=== PATIENT | male | born 1960 | race Caucasian/White ===

== ENCOUNTER 2021-03-22 14:21 | Inpatient (IN) | payer OTHER, SELFPAY ==
[2021-03-22] VITALS (13 sets, daily range): BP systolic 126–164; BP diastolic 69–84; PULSE 66–89; RESP 14–18; TEMP 36.6–37.1; O2SAT 96–100; BMI 33.5
--- NOTE | 2021-03-22 15:30 | ECG_ITS ---
Test Reason : WEAKNESS Blood Pressure : / mmHG Vent. Rate : 078 BPM Atrial Rate : 078 BPM P-R Int : 218 ms QRS Dur : 082 ms QT Int : 372 ms P-R-T Axes : 019 -04 -11 degrees QTc Int : 424 ms Sinus rhythm with 1st degree A-V block Otherwise normal ECG No previous ECGs available Referred By: Liza Marcano Electronically Signed By:Efren Oliva
[2021-03-22 16:12] LABS: MANUAL DIFF FLAG NO
[2021-03-22 16:15] LABS: Basophils Percent Auto 0.5 % (0-2); Eosinophils Absolute Auto 0.2 X10*3/uL (0.0-0.4); Eosinophils Percent Auto 5.2 % (0-4); Lymphocytes Absolute Auto 1.2 X10*3/uL (1.2-4.9); Lymphocytes Percent Auto 31.3 % (20-40); Mean Platelet Volume 10.4 fL (9.4-12.4); Monocytes Absolute Auto 0.5 X10*3/uL (0.1-1.2); Monocytes Percent Auto 13.3 % (2-11); Neutrophils Absolute Auto 1.8 x10*3/uL (2.0-8.3); Neutrophils Percent Auto 49.7 % (45-73); Platelet Count 241 X10*3/uL (160-400); Red Blood Count 2.94 X10*6/uL (4.60-5.80); Red Cell Distribution Width 18.6 % (11.0-16.0); White Blood Count 3.7 X10*3/uL (4.8-10.8)
[2021-03-22 16:25] LABS: Hemoglobin 5.6 g/dl (14.0-18.0)
[2021-03-22 16:29] LABS: Anion Gap 13 (12-20); Blood Urea Nitrogen 24 mg/dL (9-16); Calcium 8.6 mg/dL (8.4-10.2); Carbon Dioxide 22 mmol/L (22-29); Chloride 105 mmol/L (96-108); Creatinine Clr Calc Pharmacy 67.5; Estimated Glomerular Filt Rate 52; Glucose Random 136 mg/dL (60-115); Potassium 4.5 mmol/L (3.3-5.1); Sodium 135 mmol/L (135-145)
[2021-03-22 16:39] LABS: COVID-19 Test Negative (Negative); IDNOW Serial# 08D9AD1C
[2021-03-22 16:39] LABS: OBS Int Ctl Valid YES; OBS1 NEGATIVE (NEGATIVE)
--- NOTE | 2021-03-22 16:53 | ED.GENADULT ---
HPI - General Adult General Chief complaint: Recheck/Abnormal Lab/Rx Stated complaint: ABNORMAL LABS Time Seen by Provider: 03/22/21 15:30 History of Present Illness HPI narrative: Patient is a 60-year-old male with a history of reflux history of hypertension. Presents today with generalized malaise weakness no bloody stool no fever no chills no cough no congestion or respiratory symptoms no diaphoresis. Patient from home. No chest pain no focal weakness no new medication no travel history no history of anemia. Positive generalized malaise weakness not immunized for COVID Related Data Allergies Allergy/AdvReac Type Severity Reaction Status Date / Time No Known Allergies Allergy Verified 03/22/21 15:30 Review of Systems Review of Systems: Positive generalized malaise Yes all other systems are reviewed and are negative [facility] Past Medical History Attestation statement: The following information was validated with the patient. Social History Social History Advance Directives: No Advance Directives Information Provided: No Physical Exam Vital Signs: Vital Signs: Last Vital Signs Temp 98.0 F 03/22/21 15:13 Pulse 72 03/22/21 15:13 Resp 14 03/22/21 15:13 BP 130/70 03/22/21 15:13 Pulse Ox 96 03/22/21 15:13 BMI result Body Mass Index 33.5 Appearance: Alert. Oriented X3. No acute distress. Eyes: Pupils equal, round and reactive to light. ENT: Pharynx normal. Neck: Normal inspection. Neck supple. No lymph nodes noted. No crepitus CVS: Normal heart rate and rhythm. Pulses normal. Normal S1 and S2 Respiratory: No respiratory distress. Breath sounds normal. No Wheezing. No rales Abdomen: Soft and nontender. No rigidity. No distention. good BS x4 Skin: Skin warm and dry. Normal skin color. Normal skin turgor. Rectal exam done with tech present was heme negative brown stool. Extremities: No lower extremity edema. Neurovascular intact to all extremities. No Lacerations. No Rash Neuro: Oriented X 3. No motor deficit. No sensory deficit. Moving all extermities. No slurred speech Medical Decision Making MDM Narrative Medical decision making narrative: Patient's hemoglobin is 5.7. This is new. With a low MCV consistent with having iron deficiency anemia. Rectal exam showed brown stool that was heme negative. Risk and benefit of transfusion discussed with patient. Nursing was present at the time. Patient consented to the blood. Case discussed with the hospitalist team. Will tense fused patient with 1 unit of blood. Patient is to be admitted. Lab Data Result diagrams: 03/22/21 16:04 03/22/21 16:04 Labs: Lab Results 03/22/21 03/22/21 03/22/21 Range/Units 16:04 16:04 16:04 WBC 3.7 L (4.8-10.8) X10*3/uL RBC 2.94 L (4.60-5.80) X10*6/uL Hgb 5.6 L* (14.0-18.0) g/dl Hct 20.0 L* (42.0-52.0) % MCV 68.0 L (80.0-98.0) fL MCH 19.0 L (27.0-33.0) pg MCHC 28.0 L (31.0-36.0) g/dl RDW 18.6 H (11.0-16.0) % Plt Count 241 (160-400) X10*3/uL MPV 10.4 (9.4-12.4) fL Immature Gran % (Auto) 0.0 (0.0-0.4) % Neut % (Auto) 49.7 (45-73) % Lymph % (Auto) 31.3 (20-40) % [place] % (Auto) 13.3 H (2-11) % Eos % (Auto) 5.2 H (0-4) % Baso % (Auto) 0.5 (0-2) % Lymph # (Auto) 1.2 (1.2-4.9) X10*3/uL [place] # (Auto) 0.5 (0.1-1.2) X10*3/uL Eos # (Auto) 0.2 (0.0-0.4) X10*3/uL Baso # (Auto) 0.0 (0.0-0.2) X10*3/uL Abs Immat Gran (auto) 0.00 (0.00-0.03) X10*3/uL Absolute Neuts (auto) 1.8 L (2.0-8.3) x10*3/uL Absolute Nucleated RBC 0.000 (0.0-0.012) X10*3/uL Nucleated RBC % (auto) 0.0 (0.0-0.2) /100WBC Sodium 135 (135-145) mmol/L Potassium 4.5 (3.3-5.1) mmol/L Chloride 105 (96-108) mmol/L Carbon Dioxide 22 (22-29) mmol/L Anion Gap 13 (12-20) BUN 24 H (9-16) mg/dL Creatinine 1.40 (0.5-1.4) mg/dL Estim Creat Clear Calc 67.5 Estimated GFR 52 Random Glucose 136 H (60-115) mg/dL Calcium 8.6 (8.4-10.2) mg/dL Stool Occult Blood (NEGATIVE) COVID-19 (RAMA) Negative (Negative) COVID-19 Clin Com See Note Blood Type Antibody Screen Crossmatch 03/22/21 03/22/21 Range/Units 16:22 16:27 WBC (4.8-10.8) X10*3/uL RBC (4.60-5.80) X10*6/uL Hgb (14.0-18.0) g/dl Hct (42.0-52.0) % MCV (80.0-98.0) fL MCH (27.0-33.0) pg MCHC (31.0-36.0) g/dl RDW (11.0-16.0) % Plt Count (160-400) X10*3/uL MPV (9.4-12.4) fL Immature Gran % (Auto) (0.0-0.4) % Neut % (Auto) (45-73) % Lymph % (Auto) (20-40) % [place] % (Auto) (2-11) % Eos % (Auto) (0-4) % Baso % (Auto) (0-2) % Lymph # (Auto) (1.2-4.9) X10*3/uL [place] # (Auto) (0.1-1.2) X10*3/uL Eos # (Auto) (0.0-0.4) X10*3/uL Baso # (Auto) (0.0-0.2) X10*3/uL Abs Immat Gran (auto) (0.00-0.03) X10*3/uL Absolute Neuts (auto) (2.0-8.3) x10*3/uL Absolute Nucleated RBC (0.0-0.012) X10*3/uL Nucleated RBC % (auto) (0.0-0.2) /100WBC Sodium (135-145) mmol/L Potassium (3.3-5.1) mmol/L Chloride (96-108) mmol/L Carbon Dioxide (22-29) mmol/L Anion Gap (12-20) BUN (9-16) mg/dL Creatinine (0.5-1.4) mg/dL Estim Creat Clear Calc Estimated GFR Random Glucose (60-115) mg/dL Calcium (8.4-10.2) mg/dL Stool Occult Blood NEGATIVE (NEGATIVE) COVID-19 (RAMA) (Negative) COVID-19 Clin Com Blood Type B Negative Antibody Screen NEGATIVE Crossmatch See Detail Critical Care Time Critical Care Time Critical Care Time: Yes Total Critical Care Time: 40 Attestation: I have personally provided 40 minutes of critical care time exclusive of time spent on separately billable procedures. Time includes review of lab data, radiology results, discussion with consultants, and monitoring for potential decompensation. Interventions were performed as documented above Discharge Plan Discharge Clinical Impression: Anemia Patient Disposition: Admitted As Inpatient
--- NOTE | 2021-03-22 18:01 | PHA.MEDREC ---
Pharmacy Consult ? Medication Reconciliation Pharmacy has completed the medication reconciliation.
--- NOTE | 2021-03-22 19:43 | PM.IMHP ---
History of Present Illness Date of Service: 03/22/21 Chief Complaint: low hemoglobin Taiwanese-speaking, exam obtained with the help of mold filling operator this is a 60-year-old male with past medical history of asthma as well as hypertension presents to the hospital with complaints of abnormal labs, low hemoglobin. Patient reports that for the past 6 months he has had low hemoglobin level. He was worked up by his primary care physician, including having a colonoscopy and EGD which according to his , were significant for polyps, hernia and esophageal inflammation but showed no bleed or ulcers. He was to have further testing done but has been feeling very tired, feeling very dizzy, fatigued, short of breath progressively worsening. He went to his PCP, did a repeat labs which showed hemoglobin of 6 and therefore was sent to the hospital for further evaluation and management. Patient denies any melena, no hematochezia, no hemoptysis, no hematemesis, no family history of blood disease, no chest pain, no abdominal pain nausea or vomiting, no diarrhea constipation. He denies any urinary symptoms and no lower extremity edema On arrival to the ED patient hemodynamically stable with no significant abnormal vitals Labs are significant for WBC count of 3.7, hemoglobin of 5.6, hematocrit of 20%, MCV of 68 ( No previous for comparison ) All other labs within normal. Stool occult negative Patient is receiving 2 units of PRBC in the ED and will be admitted for further management Review of Systems Review of Systems: Yes all other systems are reviewed and are negative [facility] Medical History (Updated 03/23/21 @ 06:16 by Nancy Zheng MD) Asthma BPH (benign prostatic hyperplasia) Hyperlipidemia Hypertension Family History (Updated 03/23/21 @ 06:15 by Nancy Zheng MD) Mother CVA (cerebral vascular accident) Surgical History (Updated 03/23/21 @ 06:15 by Nancy Zheng MD) History of nasal surgery Social History Advance Directives: No Advance Directives Information Provided: No Meds Allergies Allergy/AdvReac Type Severity Reaction Status Date / Time No Known Allergies Allergy Verified 03/22/21 15:30 Active Medications: Current Medications Acetaminophen (Acetaminophen 325 Mg Tablet) 650 mg PO Q6H PRN PRN Reason: Pain, Mild (Pain Scale 1-3) Amlodipine Besylate (Amlodipine Besylate 5 Mg Tablet) 5 mg PO QAM [facility]; Protocol Aspirin (Aspirin Enteric Coated 81 Mg Tablet.) 81 mg PO DAILY [facility] Atorvastatin Calcium (Atorvastatin Calcium 20 Mg Tablet) 20 mg PO DAILY [facility] Docusate Sodium (Docusate Sodium 100 Mg Capsule) 100 mg PO DAILY PRN PRN Reason: Constipation Non-Formulary Medication (Olmesartan) 1 tab PO BEDTIME [facility] Omeprazole (Omeprazole 20 Mg Capsule.) 20 mg PO DAILY [facility] Ondansetron HCl (Ondansetron Hcl 4 Mg/2 Ml Vial) 4 mg IVPUSH Q8H PRN PRN Reason: Nausea and Vomiting Sodium Chloride (0.9 % Sodium Chloride Flush 3 Ml Syringe) 3 ml IVFLUSH QSHIFT [facility] Tamsulosin HCl (Tamsulosin Hcl 0.4 Mg Capsule) 0.4 mg PO QPM [facility] Home Medications Medication Instructions Recorded Confirmed Last Taken Type amlodipine 5 mg tablet 1 tab PO QAM 03/22/21 03/22/21 Unknown History aspirin 81 mg tablet,delayed 1 tab PO DAILY 03/22/21 03/22/21 Unknown History release atorvastatin 20 mg tablet 1 tab PO DAILY 03/22/21 03/22/21 Unknown History olmesartan 40 mg tablet 1 tab PO BEDTIME 03/22/21 03/22/21 Unknown History omeprazole 20 mg capsule,delayed 1 cap PO DAILY 03/22/21 03/22/21 Unknown History release tamsulosin 0.4 mg capsule 1 cap PO QPM 03/22/21 03/22/21 Unknown History Physical Exam Vital Signs and Narrative: Vital Signs: Last Vital Signs Temp 97.9 F 03/22/21 19:41 Pulse 70 03/22/21 19:41 Resp 16 03/22/21 19:41 BP 144/79 H 03/22/21 19:41 Pulse Ox 99 03/22/21 19:39 BMI result Body Mass Index 33.5 Const: General: cooperative and no acute distress Orientation/consciousness: patient oriented x3 Eyes: General: appearance normal, both eyes and all related structures Pupils: Equal, round and reactive pupils present Resp: Effort & Inspection: normal respiratory effort Auscultation: clear to auscultation bilaterally Cardio: Rate: regular rate Rhythm: regular rhythm GI: Palpation (GI): Soft to palpation Auscultation: normal bowel sounds Skin: Other: appears pale General skin exam: no rashes or lesions noted Neuro: General: patient oriented x3 Cranial nerves: Yes Equal, round and reactive pupils present Cognition (Neuro): normal cognition Extrem: General: Yes normal to inspection and Yes no pedal edema Results Labs CBC and Chem 7: 03/22/21 16:04 03/22/21 16:04 Labs: Laboratory Results - last 24 hr 03/22/21 03/22/21 03/22/21 16:04 16:04 16:04 MCV 68.0 L MCH 19.0 L MCHC 28.0 L RDW 18.6 H Plt Count 241 MPV 10.4 Immature Gran % (Auto) 0.0 Neut % (Auto) 49.7 Lymph % (Auto) 31.3 [place] % (Auto) 13.3 H Eos % (Auto) 5.2 H Baso % (Auto) 0.5 Lymph # (Auto) 1.2 [place] # (Auto) 0.5 Eos # (Auto) 0.2 Baso # (Auto) 0.0 Abs Immat Gran (auto) 0.00 Absolute Neuts (auto) 1.8 L Absolute Nucleated RBC 0.000 Nucleated RBC % (auto) 0.0 Anion Gap 13 Estim Creat Clear Calc 67.5 Estimated GFR 52 Random Glucose 136 H Calcium 8.6 Stool Occult Blood COVID-19 (RAMA) Negative COVID-19 Clin Com See Note Blood Type Antibody Screen Crossmatch 03/22/21 03/22/21 16:22 16:27 MCV MCH MCHC RDW Plt Count MPV Immature Gran % (Auto) Neut % (Auto) Lymph % (Auto) [place] % (Auto) Eos % (Auto) Baso % (Auto) Lymph # (Auto) [place] # (Auto) Eos # (Auto) Baso # (Auto) Abs Immat Gran (auto) Absolute Neuts (auto) Absolute Nucleated RBC Nucleated RBC % (auto) Anion Gap Estim Creat Clear Calc Estimated GFR Random Glucose Calcium Stool Occult Blood NEGATIVE COVID-19 (RAMA) COVID-19 Clin Com Blood Type B Negative Antibody Screen NEGATIVE Crossmatch See Detail Assessment and Plan (1) Microcytic anemia: Status: Acute Plan 60-year-old male with past medical history of hypertension, hyperlipidemia, asthma who presents to the hospital with complaints of worsening hemoglobin level as well as fatigue dizziness and shortness of breath # microcytic anemia - appears to be going on for past 6 months - has low MCV and leukopenia - workup in the past has been negative including, scope PE and EGD per his at bedside - receiving 2 units of PRBC - hemoccult negative - will consult Hematology-Oncology - follow CBC # hypertension - stable - continue antihypertensive # BPH - continue tamsulosin # asthma - not in exacerbation DVT prophylaxis: early ambulation and SCDs until source of anemia identified Quality Stroke Does the patient have a stroke diagnosis?: No VTE Prior VTE?: No VTE Risk Level:: Medical - low VTE Device Contraindication: N/A - Device Ordered VTE Drug Contraindication: Treatment Not Indicated
[2021-03-22] MEDS: Tamsulosin HCL 0.4 MG CAPSULE PO (20:04)
--- NOTE | 2021-03-22 20:08 | PC.NURSE ---
PT daughter in-law-Ayala [phone]
--- NOTE | 2021-03-22 22:23 | PC.NURSE ---
pt aware that he is going to be staying in the hospital, family at bedside. 2nd unit of PRBC hanging now, KRYSTA used for interpretation
--- NOTE | 2021-03-22 22:33 | PC.NURSE ---
call placed to pharmacy for Valsartan - heather bring up
[2021-03-22] MEDS: Valsartan 160 MG TABLET PO (22:59)
[2021-03-23] VITALS (10 sets, daily range): BP systolic 131–155; BP diastolic 63–83; PULSE 64–82; RESP 16–18; TEMP 36.6–36.8; O2SAT 96–99
[2021-03-23] MEDS: Omeprazole 20 MG CAPSULE.DR PO (07:52)
[2021-03-23] MEDS: 0.9 % Sodium Chloride Flush 3 ML SYRINGE IVFLUSH ×2 (07:53→23:54)
[2021-03-23 07:57] LABS: MANUAL DIFF FLAG NO
[2021-03-23 07:59] LABS: Basophils Percent Auto 0.5 % (0-2); Eosinophils Absolute Auto 0.2 X10*3/uL (0.0-0.4); Eosinophils Percent Auto 3.8 % (0-4); Hematocrit 24.7 % (42.0-52.0); Hemoglobin 7.5 g/dl (14.0-18.0); Imm Gran Abs Auto 0.02 X10*3/uL (0.00-0.03); Imm Gran Pct Auto 0.3 % (0.0-0.4); Lymphocytes Absolute Auto 1.5 X10*3/uL (1.2-4.9); Lymphocytes Percent Auto 24.8 % (20-40); Mean Corpuscular HGB Conc 30.4 g/dl (31.0-36.0); Mean Corpuscular Hemoglobin 21.8 pg (27.0-33.0); Mean Corpuscular Volume 71.8 fL (80.0-98.0); Mean Platelet Volume 10.3 fL (9.4-12.4); Monocytes Absolute Auto 0.7 X10*3/uL (0.1-1.2); Monocytes Percent Auto 12.2 % (2-11); Neutrophils Absolute Auto 3.4 x10*3/uL (2.0-8.3); Neutrophils Percent Auto 58.4 % (45-73); Platelet Count 222 X10*3/uL (160-400); Red Blood Count 3.44 X10*6/uL (4.60-5.80); White Blood Count 5.8 X10*3/uL (4.8-10.8)
[2021-03-23 08:12] LABS: Anion Gap 8 (12-20); Blood Urea Nitrogen 20 mg/dL (9-16); Calcium 8.7 mg/dL (8.4-10.2); Carbon Dioxide 25 mmol/L (22-29); Chloride 108 mmol/L (96-108); Creatinine Clr Calc Pharmacy 73.9; Estimated Glomerular Filt Rate 57; Glucose Random 109 mg/dL (60-115); Potassium 4.4 mmol/L (3.3-5.1); Sodium 137 mmol/L (135-145)
[2021-03-23 08:31] LABS: Ferritin 18 ng/mL (20-250)
[2021-03-23 08:59] LABS: Immature Retic Fraction 28.2 % (2.3-13.4); Retic HGB Equivalent 17.3 pg (30.0-35.0); Reticulocyte Percent 1.2 % (0.5-1.8); Reticulocytes Absolute 0.042 X10*6/uL (0.026-0.095)
[2021-03-23] MEDS: Aspirin Enteric Coated 81 MG TABLET.DR PO (09:10)
[2021-03-23] MEDS: amLODIPine Besylate 5 MG TABLET PO (09:10)
[2021-03-23] MEDS: Atorvastatin Calcium 20 MG TABLET PO (09:10)
[2021-03-23 09:14] LABS: Alanine Aminotransferase 14 U/L (0-40); Albumin Level 3.9 g/dL (3.5-5.0); Alkaline Phosphatase 39 U/L (39-117); Aspartate Amino Transferase 12 U/L (5-37); Bilirubin Direct 0.6 mg/dL (0.0-0.5); Bilirubin Total 1.8 mg/dL (0.0-1.0); Iron 364 mcg/dL (45-160); Total Protein 6.1 g/dL (6.5-8.0)
[2021-03-23 09:26] LABS: Lactate Dehydrogenase 152 U/L (118-273); Total Iron Binding Capacity < 381 mcg/dL (228-428); Unsaturated Iron Binding < 17 ug/dL
--- NOTE | 2021-03-23 09:33 | HO.PM.IMPN ---
Subjective Subjective Date of Service: 03/23/21 Interval History: late entry note for 03/23 f/u on anemia, dizziness, no dizziness following transfusion Review of Systems Gen: no fever Resp: no sob, no cough CV: no chest, no PADILLA, no leg edema GI: No n/v, no abd pain Neuro: No confusion Physical Exam Vital Signs: Vital Signs: vitals reviewed on 03/23 Const: Other: General: AO X 3, no acute distress Resp: CTA bilateral CVS: S1,S2,RRR GI: +BS, NT, no distention Skin: No rash Neuro: motor grossly intact Psych: appropriate affect Objective Data Active Medications Acetaminophen (Acetaminophen 325 Mg Tablet) 650 mg PO Q6H PRN PRN Reason: Pain, Mild (Pain Scale 1-3) Amlodipine Besylate (Amlodipine Besylate 5 Mg Tablet) 5 mg PO DAILY [facility]; Protocol Last Admin: 03/24/21 08:58 Dose: 5 mg Documented by: GRACIE Aspirin (Aspirin Enteric Coated 81 Mg Tablet.) 81 mg PO DAILY [facility] Last Admin: 03/24/21 08:57 Dose: 81 mg Documented by: GRACIE Atorvastatin Calcium (Atorvastatin Calcium 20 Mg Tablet) 20 mg PO DAILY [facility] Last Admin: 03/24/21 08:57 Dose: 20 mg Documented by: GRACIE Docusate Sodium (Docusate Sodium 100 Mg Capsule) 100 mg PO DAILY PRN PRN Reason: Constipation Omeprazole (Omeprazole 20 Mg Capsule.) 20 mg PO DAILY@0630 [facility] Last Admin: 03/24/21 06:08 Dose: 20 mg Documented by: SAM Ondansetron HCl (Ondansetron Hcl 4 Mg/2 Ml Vial) 4 mg IVPUSH Q8H PRN PRN Reason: Nausea and Vomiting Sodium Chloride (0.9 % Sodium Chloride Flush 3 Ml Syringe) 3 ml IVFLUSH QSHIFT [facility] Last Admin: 03/24/21 08:54 Dose: 3 ml Documented by: GRACIE Tamsulosin HCl (Tamsulosin Hcl 0.4 Mg Capsule) 0.4 mg PO DAILY@1700 [facility] Last Admin: 03/23/21 16:18 Dose: 0.4 mg Documented by: BELLA Valsartan (Valsartan 160 Mg Tablet) 160 mg PO BEDTIME [facility] Last Admin: 03/23/21 21:30 Dose: 160 mg Documented by: SEBLE Labs CBC & Chem 7: 03/24/21 07:34 03/23/21 07:36 Labs: Laboratory Results - last 24 hr 03/22/21 03/23/21 03/24/21 16:22 08:51 07:34 MCV 73.4 L MCH 22.3 L MCHC 30.4 L RDW 23.2 H Plt Count 247 MPV 11.0 Absolute Nucleated RBC 0.000 Nucleated RBC % (auto) 0.0 Vitamin B12 357 Folate 12.2 Blood Type B Negative Antibody Screen NEGATIVE Crossmatch See Detail Assessment and Plan (1) Microcytic anemia: Status: Acute (2) Anemia: Status: Acute Plan 60/m with anemia of unclear nature, he has had EGD and colonosopy somewhere in [place] last month. Here with dizziness and found to be profoundly anemia hgb on 5, negative occult blood. Transfused 2 unst with improvment in acute anemia--no evidence of acute blood loss. Will transfuse 1 more units and hematology to see Quality Stroke Does the patient have a stroke diagnosis?: No VTE Prior VTE?: No VTE Risk Level:: Medical - low VTE Device Contraindication: N/A - Device Ordered VTE Drug Contraindication: Treatment Not Indicated
[2021-03-23 10:51] LABS: Folate 12.2 ng/mL (> or = 4.0); Vitamin B12 357 pg/mL (200-900)
--- NOTE | 2021-03-23 12:26 | MHC.CM.PN ---
CM CONTACTED PTS [id number], ARTEM ([phone]) WHO REPORTS THE PT LIVES WITH HER AND HER AND CHILDREN. SHE REPORTS HE IS INDEPENDENT WITH SELF CARE AND USES NO DME OR HOME SERVICES. PT SEES FRANCIS CUMMINS AT [facility] IN [place] FOR PRIMARY CARE AND HAS NO HCP. HCP INFORMATION PROVIDED AND THEY ARE AWARE CM CAN ASSIST IN COMPLETION IF DESIRED. PT HAS NOT RECEIVED THE COVID-19 VACCINES. CURRENT DC PLAN IS HOME WITH RESUMPTION OF FAMILY SUPPORT FAMILY TO TRANSPORT
--- NOTE | 2021-03-23 14:12 | PC.NURSE ---
PT RESTING ATE LUNCH. APPEARS IN NO OUTWARD DISTRESS. DR LUCERO AT THE BEDSIDE
--- NOTE | 2021-03-23 14:24 | P.DS_ITS ---
DS: Providers Provider Date of Service: 03/24/21 Date of admission: 03/22/21 19:38 Primary care physician: Unknown Physician Consults: 03/22/21 22:50 Consult to Hematology / Oncology Routine Consulting Provider: Pili Ferreira Reason for consultation: anemia Has provider been notified: No DS: Diagnosis Discharge Diagnosis (1) Microcytic anemia: Status: Acute DS: Summary Hospital Course Hospital Course: Chief Complaint:? low hemoglobin ? Ethiopian-speaking, exam obtained with the help of installer helper this is a 60-year-old male with past medical history of asthma as well as hypertension presents to the hospital with complaints of abnormal labs, low hemoglobin.? Patient reports that for the past 6 months he has had low hemoglobin level.? He was worked up by his primary care physician, including having a colonoscopy and EGD which? according to his ,? were significant for polyps, hernia and esophageal inflammation but showed no bleed or ulcers.? He was to have further testing done but has been feeling very tired, feeling very dizzy, fatigued, short of breath progressively worsening.? He went to his PCP, did a repeat labs which showed hemoglobin of 6 and therefore was sent to the [facility] for further evaluation and management.? Patient denies any melena, no hematochezia, no hemoptysis, no hematemesis, no family history of blood disease, no chest pain, no abdominal pain nausea or vomiting, no diarrhea constipation.? He denies any urinary symptoms and no lower extremity edema On arrival to the ED? patient hemodynamically stable with no significant abnormal vitals Labs are significant for WBC count of 3.7, hemoglobin of 5.6, hematocrit of 20%, MCV of 68 ( No previous for comparison? ) All other labs within normal.? Stool occult negative Patient is receiving 2 units of PRBC in the ED and will be admitted for further management Hospital course: Patient was admitted and transfused 2 units of RBCs with improvment in his symptoms. Hemoglobin is now 8.9 after 3 units of RBC. He has been evaluated by Dr. Clinton and will follow with patient on outpatient baisis. Time Spent with Patient Time attestation: Total time spent providing and/or coordinating discharge services: Discharge coordination time: Greater than 30 minutes Quality: Stroke Does the patient have a stroke diagnosis?: No Physical Exam Vital Signs: Vital Signs: Selected Entries 03/24/21 09:09 Temperature 97.4 F Pulse Rate 72 Respiratory Rate 15 Blood Pressure 160/86 H Pulse Oximetry 98 Oxygen Delivery Me thod Room Air Const: Other: General: AO X 3, no acute distress Resp: CTA bilateral CVS: S1,S2,RRR GI: +BS, NT, no distention Skin: No rash Neuro: motor grossly intact Psych: appropriate affect DS: Data Data Completed and Pending Labs on day of discharge: Laboratory Results - last 24 hr 03/22/21 03/22/21 03/22/21 16:04 16:04 16:04 WBC 3.7 L RBC 2.94 L Hgb 5.6 L* Hct 20.0 L* MCV 68.0 L MCH 19.0 L MCHC 28.0 L RDW 18.6 H Plt Count 241 MPV 10.4 Immature Gran % (Auto) 0.0 Neut % (Auto) 49.7 Lymph % (Auto) 31.3 Camp % (Auto) 13.3 H Eos % (Auto) 5.2 H Baso % (Auto) 0.5 Lymph # (Auto) 1.2 Camp # (Auto) 0.5 Eos # (Auto) 0.2 Baso # (Auto) 0.0 Abs Immat Gran (auto) 0.00 Absolute Neuts (auto) 1.8 L Absolute Nucleated RBC 0.000 Nucleated RBC % (auto) 0.0 Smear Path Review SEE NOTE Absolute Retic Percent Retic Immature Retic Fraction Retic Hgb Equivalent Sodium 135 Potassium 4.5 Chloride 105 Carbon Dioxide 22 Anion Gap 13 BUN 24 H Creatinine 1.40 Estim Creat Clear Calc 67.5 Estimated GFR 52 Random Glucose 136 H Calcium 8.6 Iron TIBC % Saturation Unsat Iron Binding Ferritin Total Bilirubin Direct Bilirubin AST ALT Alkaline Phosphatase Lactate Dehydrogenase Total Protein Albumin Vitamin B12 Folate Stool Occult Blood COVID-19 ([facility]) Negative COVID-19 Clin Com See Note Blood Type Antibody Screen Crossmatch 03/22/21 03/22/21 03/23/21 16:22 16:27 07:36 WBC RBC Hgb Hct MCV MCH MCHC RDW Plt Count MPV Immature Gran % (Auto) Neut % (Auto) Lymph % (Auto) Camp % (Auto) Eos % (Auto) Baso % (Auto) Lymph # (Auto) Camp # (Auto) Eos # (Auto) Baso # (Auto) Abs Immat Gran (auto) Absolute Neuts (auto) Absolute Nucleated RBC Nucleated RBC % (auto) Smear Path Review Absolute Retic Percent Retic Immature Retic Fraction Retic Hgb Equivalent Sodium 137 Potassium 4.4 Chloride 108 Carbon Dioxide 25 Anion Gap 8 L BUN 20 H Creatinine 1.28 Estim Creat Clear Calc 73.9 Estimated GFR 57 Random Glucose 109 Calcium 8.7 Iron TIBC % Saturation Unsat Iron Binding Ferritin Total Bilirubin Direct Bilirubin AST ALT Alkaline Phosphatase Lactate Dehydrogenase Total Protein Albumin Vitamin B12 Folate Stool Occult Blood NEGATIVE COVID-19 ([facility]) COVID-19 Clin Com Blood Type B Negative Antibody Screen NEGATIVE Crossmatch See Detail 03/23/21 03/23/21 03/23/21 07:36 07:36 08:51 WBC 5.8 RBC 3.44 L Hgb 7.5 L D Hct 24.7 L D MCV 71.8 L MCH 21.8 L MCHC 30.4 L RDW 23.0 H Plt Count 222 MPV 10.3 Immature Gran % (Auto) 0.3 Neut % (Auto) 58.4 Lymph % (Auto) 24.8 Camp % (Auto) 12.2 H Eos % (Auto) 3.8 Baso % (Auto) 0.5 Lymph # (Auto) 1.5 Camp # (Auto) 0.7 Eos # (Auto) 0.2 Baso # (Auto) 0.0 Abs Immat Gran (auto) 0.02 Absolute Neuts (auto) 3.4 Absolute Nucleated RBC 0.000 Nucleated RBC % (auto) 0.0 Smear Path Review Absolute Retic 0.042 Percent Retic 1.2 Immature Retic Fraction 28.2 H Retic Hgb Equivalent 17.3 L Sodium Potassium Chloride Carbon Dioxide Anion Gap BUN Creatinine Estim Creat Clear Calc Estimated GFR Random Glucose Calcium Iron TIBC % Saturation Unsat Iron Binding Ferritin 18 L Total Bilirubin Direct Bilirubin AST ALT Alkaline Phosphatase Lactate Dehydrogenase Total Protein Albumin Vitamin B12 Folate Stool Occult Blood COVID-19 ([facility]) COVID-19 [employer] Com Blood Type Antibody Screen Crossmatch 03/23/21 03/23/21 08:51 08:51 WBC RBC Hgb Hct MCV MCH MCHC RDW Plt Count MPV Immature Gran % (Auto) Neut % (Auto) Lymph % (Auto) Camp % (Auto) Eos % (Auto) Baso % (Auto) Lymph # (Auto) Camp # (Auto) Eos # (Auto) Baso # (Auto) Abs Immat Gran (auto) Absolute Neuts (auto) Absolute Nucleated RBC Nucleated RBC % (auto) Smear Path Review Absolute Retic Percent Retic Immature Retic Fraction Retic Hgb Equivalent Sodium Potassium Chloride Carbon Dioxide Anion Gap BUN Creatinine Estim Creat Clear Calc Estimated GFR Random Glucose Calcium Iron 364 H TIBC < 381 % Saturation TNP Unsat Iron Binding < 17 Ferritin Total Bilirubin 1.8 H Direct Bilirubin 0.6 H AST 12 ALT 14 Alkaline Phosphatase 39 Lactate Dehydrogenase 152 Total Protein 6.1 L Albumin 3.9 Vitamin B12 357 Folate 12.2 Stool Occult Blood COVID-19 ([facility]) COVID-19 Clin Com Blood Type Antibody Screen Crossmatch Discharge Plan Discharge Anticipated Discharge Date/Time: 03/24/21 09:27 Patient Disposition: Home, Self-Care Discharge Diagnosis: Acute blood loss anemia Referrals: Physician,Unknown J [Primary Care Provider] - 1 Week Discharge Medications: Continued atorvastatin 20 mg tablet 1 tab PO DAILY 0RF amlodipine 5 mg tablet 1 tab PO QAM 0RF aspirin 81 mg tablet,delayed release (DR/EC) 1 tab PO DAILY 0RF tamsulosin 0.4 mg capsule 1 cap PO QPM 0RF omeprazole 20 mg capsule,delayed release(DR/EC) 1 cap PO DAILY 0RF olmesartan 40 mg tablet 1 tab PO BEDTIME 0RF Discharge Orders: Discharge Order (Routine); Ordered 03/24/21 Ordered By: Yash Goldsmith Diet: advance to usual diet Activity on Discharge: As tolerated Stand Alone Forms: Patient Portal Discharge page Care Plan Goals: full work up for anemia Health Concerns: symptomatic anemia Plan of Treatment: To follow up with your GI doctor, Follow up with Dr. Clinton (hematoligst here) Assessment: As above Discharge Date/Time: 03/24/21 11:00
[2021-03-23] MEDS: Tamsulosin HCL 0.4 MG CAPSULE PO (16:18)
--- NOTE | 2021-03-23 16:58 | PM.HEMONCCN ---
Subjective - Subjective Chief complaint: Weakness Patient: new to practice Consult date: 03/23/21 Requesting Physician: Dr. Goldsmith Primary Care Provider: Vera Sal MD HPI - Consult Narrative Reason for consult: Severe anemia Narrative: Victor Manuel Coker is a 60 year old male who was sent by his PCP for severe anemia. Patient is somewhat of a poor historian but states that he has been anemic since summer. He had an EGD and colonoscopy at [facility] and he does not know what the outcome of the test was. He states that he was not on any oral iron or any medications to treat his anemia. He states he never saw a vegetable tester. He does not know although his hemoglobin was previously. He has never received a blood transfusion. He suffered a stroke in 1996 and has been disabled ever since. He denies any complaints such as loss of appetite, weight loss or change in bowel habits. He has gained weight in the last few months as he was eating more when he was diagnosed with anemia. He has not been moving around much or exercising. He denies any recent infections or changes to his medications. He is currently receiving his 2nd unit of blood transfusion. He states that he feels a lot better than yesterday. Review of Systems - Constitutional Reports as per HPI, Reports no additional constitutional complaints - Cardiovascular Reports no additional cardiovascular complaints - Respiratory Reports no additional respiratory complaints - Gastrointestinal Reports no additional gastrointestinal complaints [facility] Medical History: Medical History (Last Updated 03/23/21 @ 06:15 by Nancy Zheng MD) Asthma BPH (benign prostatic hyperplasia) Hyperlipidemia Hypertension Family History: Family History (Last Updated 03/23/21 @ 06:15 by Nancy Zheng MD) Mother CVA (cerebral vascular accident) Surgical History: Surgical History (Last Updated 03/23/21 @ 06:15 by Nancy Zheng MD) History of nasal surgery Social History: Social History (Last Reviewed 03/22/21 @ 17:16 by Liza Marcano MD) Occupation Assessmet: service: No Current occupational status: retired Home Medications and Allergies Current Medications: Current Medications Acetaminophen (Acetaminophen 325 Mg Tablet) 650 mg PO Q6H PRN PRN Reason: Pain, Mild (Pain Scale 1-3) Amlodipine Besylate (Amlodipine Besylate 5 Mg Tablet) 5 mg PO DAILY [facility]; Protocol Last Admin: 03/23/21 09:10 Dose: 5 mg Documented by: Aspirin (Aspirin Enteric Coated 81 Mg Tablet.) 81 mg PO DAILY [facility] Last Admin: 03/23/21 09:10 Dose: 81 mg Documented by: Atorvastatin Calcium (Atorvastatin Calcium 20 Mg Tablet) 20 mg PO DAILY [facility] Last Admin: 03/23/21 09:10 Dose: 20 mg Documented by: Docusate Sodium (Docusate Sodium 100 Mg Capsule) 100 mg PO DAILY PRN PRN Reason: Constipation Omeprazole (Omeprazole 20 Mg Capsule.) 20 mg PO DAILY@0630 [facility] Last Admin: 03/23/21 07:52 Dose: 20 mg Documented by: Ondansetron HCl (Ondansetron Hcl 4 Mg/2 Ml Vial) 4 mg IVPUSH Q8H PRN PRN Reason: Nausea and Vomiting Sodium Chloride (0.9 % Sodium Chloride Flush 3 Ml Syringe) 3 ml IVFLUSH QSHIFT [facility] Last Admin: 03/23/21 11:08 Dose: Not Given Documented by: Tamsulosin HCl (Tamsulosin Hcl 0.4 Mg Capsule) 0.4 mg PO DAILY@1700 [facility] Last Admin: 03/23/21 16:18 Dose: 0.4 mg Documented by: Valsartan (Valsartan 160 Mg Tablet) 160 mg PO BEDTIME [facility] Last Admin: 03/22/21 22:59 Dose: 160 mg Documented by: Home Medications Medication Instructions Recorded Confirmed Type amlodipine 5 mg tablet 1 tab PO QAM 03/22/21 03/22/21 History aspirin 81 mg tablet,delayed 1 tab PO DAILY 03/22/21 03/22/21 History release atorvastatin 20 mg tablet 1 tab PO DAILY 03/22/21 03/22/21 History olmesartan 40 mg tablet 1 tab PO BEDTIME 03/22/21 03/22/21 History omeprazole 20 mg capsule,delayed 1 cap PO DAILY 03/22/21 03/22/21 History release tamsulosin 0.4 mg capsule 1 cap PO QPM 03/22/21 03/22/21 History Allergies Allergy/AdvReac Type Severity Reaction Status Date / Time No Known Allergies Allergy Verified 03/22/21 15:30 Physical Exam Vital signs: Vital Signs Temp 98 F 03/23/21 15:20 Pulse 74 03/23/21 15:20 Resp 16 03/23/21 15:20 BP 131/77 03/23/21 15:20 Pulse Ox 99 03/23/21 14:56 Intake & Output 03/22/21 03/23/21 03/23/21 18:59 06:59 18:59 Intake Total 700 / 700 0 / 0 Balance 700 / 700 0 / 0 Intake: Intake (Blood Product) Amount 700 / 700 0 / 0 Red Blood Cells (E0382) Unit 350 / 350 [id number] Red Blood Cells (E0382) Unit 350 / 350 [id number] Red Blood Cells (E0382) Unit 0 / 0 [id number] Other: Weight 106.1 kg Weight 106.1 kg - Constitutional Present: no acute distress, cooperative - Routine HEENT Exam Head: Present: normal inspection Eye: Present: EOMI, PERRL - Routine Neck Exam Present: supple. Absent: lymphadenopathy - Routine Respiratory Exam Present: CTAB - Routine Cardiovascular Exam Cardiovascular: Present: RRR, S1, S2 - Routine Abdominal Exam Present: normal bowel sounds, soft - Routine Extremities Exam Present: normal inspection. Absent: calf tenderness - Routine Skin Exam Present: intact. Absent: cyanosis - Routine Neurological Exam Present: alert, oriented X3 Hem/Onc Consult Result - Labs CBC & Chem 7: 03/23/21 07:36 03/23/21 07:36 Labs: Short CBC 03/23/21 Range/Units 07:36 WBC 5.8 (4.8-10.8) X10*3/uL Hgb 7.5 L D (14.0-18.0) g/dl Hct 24.7 L D (42.0-52.0) % Plt Count 222 (160-400) X10*3/uL BMP 03/23/21 07:36 Sodium 137 Potassium 4.4 Chloride 108 Carbon Dioxide 25 BUN 20 H Creatinine 1.28 Calcium 8.7 Liver Function 03/23/21 Range/Units 08:51 Total Bilirubin 1.8 H (0.0-1.0) mg/dL Direct Bilirubin 0.6 H (0.0-0.5) mg/dL AST 12 (5-37) U/L ALT 14 (0-40) U/L Alkaline Phosphatase 39 (39-117) U/L Albumin 3.9 (3.5-5.0) g/dL Assessment and Plan Patient Active problem list reviewed?: Yes (1) Anemia Status: Acute Assessment and plan: 1. This is a 60-year-old man presenting with microcytic anemia consistent with iron deficiency. This was diagnosed in summer, he had a workup with his PCP and at [facility]. Apparently he had EGD/colonoscopy. It is unclear if he was on oral iron supplementation, his serum iron level is quite elevated. No evidence of hemolysis. He has normal vitamin B12 and folic acid levels. Occult GI blood losses is a possibility. Rest of his labs and physical examination is quite benign. I have tried to get in touch with his PCP , Dr Sal at [facility] to get his old records. He can be discharged home after blood transfusion and follow-up with hematology as outpatient. I thank you for this consultation. - Time Spent With Patient Time Spent with Patient (in minutes): 25
--- NOTE | 2021-03-23 19:44 | PC.NURSE ---
Report taken from Andrea, this RN resuming care. Pt sleeping in bed @ this time in NAD. Continue to monitor.
--- NOTE | 2021-03-23 21:23 | PC.NURSE ---
Elmer (son) [phone] calling inquiring if pt was ready to be discharged. Son advised pt is not up for discharge yet and to discuss with MD in the morning.
[2021-03-23] MEDS: Valsartan 160 MG TABLET PO (21:30)
[2021-03-24 01:24] VITALS: RESP 16
[2021-03-24 05:41] VITALS: RESP 14
[2021-03-24] MEDS: Omeprazole 20 MG CAPSULE.DR PO (06:08)
[2021-03-24 08:21] LABS: Hematocrit 29.3 % (42.0-52.0); Hemoglobin 8.9 g/dl (14.0-18.0); Mean Corpuscular HGB Conc 30.4 g/dl (31.0-36.0); Mean Corpuscular Hemoglobin 22.3 pg (27.0-33.0); Mean Corpuscular Volume 73.4 fL (80.0-98.0); Platelet Count 247 X10*3/uL (160-400); Red Blood Count 3.99 X10*6/uL (4.60-5.80); Red Cell Distribution Width 23.2 % (11.0-16.0); White Blood Count 5.9 X10*3/uL (4.8-10.8)
[2021-03-24] MEDS: 0.9 % Sodium Chloride Flush 3 ML SYRINGE IVFLUSH (08:54)
[2021-03-24] MEDS: Atorvastatin Calcium 20 MG TABLET PO (08:57)
[2021-03-24] MEDS: Aspirin Enteric Coated 81 MG TABLET.DR PO (08:57)
[2021-03-24] MEDS: amLODIPine Besylate 5 MG TABLET PO (08:58)
[2021-03-24 09:09] VITALS: BP 160/86; PULSE 72; RESP 15; TEMP 36.3; O2SAT 98
--- NOTE | 2021-03-24 10:45 | PC.NURSE ---
While walking by pt's room this production underwriter noted pt's iv and name band sitting on his bedside table and his hospital gown on the bed. Prior to that Dr. Franco spoke with the pt and let him know that he will be discharged. Pt left without receiving discharge papers. Charge nurse aware.
--- NOTE | 2021-03-24 11:33 | MHC.CM.PN ---
PT CLEARED TO DC HOME TODAY WITH NO SERVICES FAMILY TO TRANSPORT
[2021-03-24 16:32] LABS: Haptoglobin 162 mg/dL (43-212)
--- NOTE | 2021-03-26 13:44 | PC.NURSE ---
ON 03/23/21 RBC UNIT [id number] WAS COMPLETED AT 1706 , O ML REMAINED
== END 2021-03-24 11:00 | disposition home or self-care (01) | DRG 663 ==
LOC: HO.ED 19:19 → HO.EDOVER 19:46
PROVIDERS: Internal Medicine; Admitting Provider Internal Medicine; Emergency Provider Emergency Medicine Emergency Medical Services; Visit Provider Internal Medicine
DX: D50.9 Iron deficiency anemia, unspecified (principal); E78.5 Hyperlipidemia, unspecified; N40.0 Benign prostatic hyperplasia without lower urinary tract symptoms; I10 Essential (primary) hypertension; J45.909 Unspecified asthma, uncomplicated; Z20.822 Contact with and (suspected) exposure to COVID-19; Z79.82 Long term (current) use of aspirin; Z79.899 Other long term (current) drug therapy
CPT/HCPCS: 36415; 36430; 80048; 80076; 82272; 82607; 82728; 82746; 83010; 83540; 83615; 85025; 85027; 85045; 86850; 86900; 86901; 86923; 87635; 93005; 99218; 99285; 99291; P9016

== ENCOUNTER → 2021-04-03 10:04 | Outpatient (BNV) | payer MEDICAID, OTHER, SELFPAY | PROVIDERS: Visit Provider Internal Medicine | DX: D50.9 Iron deficiency anemia, unspecified (principal) | CPT/HCPCS: 99212; 99213; 99214 ==

== ENCOUNTER 2022-03-09 16:55 | Emergency (ER) | payer OTHER, SELFPAY ==
--- NOTE | ~2022-03-09 | XR_ITS ---
EXAMINATION: XR CHEST CLINICAL INFORMATION: SOB and weakness COMPARISON: None TECHNIQUE: 2 views of the chest were obtained. FINDINGS: No significant abnormality is noted involving the heart, lungs, mediastinum, bony thorax or soft tissues. XR/XR chest 2V IMPRESSION: Unremarkable chest examination.
[2022-03-09 17:02] VITALS: BP 159/80; PULSE 84; RESP 20; TEMP 36.6; O2SAT 99; BMI 32.5
--- NOTE | 2022-03-09 17:02 | ED.GENADULT ---
HPI - General Adult General Chief complaint: Weakness <NANCIE De Paz - Last Filed: 03/09/22 17:03> Stated complaint: general weakness <NANCIE De Paz - Last Filed: 03/09/22 17:03> Time Seen by Provider: 03/09/22 18:04 <NANCIE De Paz - Last Filed: 03/09/22 17:03> Source: patient <Shelia Davis NP - Last Filed: 03/09/22 22:05> Mode of arrival: ambulatory <Shelia Davis NP - Last Filed: 03/09/22 22:05> Limitations: language barrier <Shelia Davis NP - Last Filed: 03/09/22 22:05> History of Present Illness HPI narrative: 61-year-old Chadian speaking male presents for weakness, fatigue, shortness of breath, and pallor for approximately a month. Patient has a history of iron deficiency anemia, has had prior blood transfusions, and is a patient of Dr. Clinton. Patient's son is at bedside, and patient requests son to interpret. Patient does understand some Mongolian. Patient does not report melena, hematochezia, abdominal distention, fevers or chills. <Shelia Davis NP - Last Filed: 03/09/22 22:05> Onset (ago): month(s) (1) <Shelia Davis NP - Last Filed: 03/09/22 22:05> Radiation: non-radiation <Shelia Davis NP - Last Filed: 03/09/22 22:05> Severity: moderate <Shelia Davis NP - Last Filed: 03/09/22 22:05> Pain Consistency: constant <Shelia Davis NP - Last Filed: 03/09/22 22:05> Relieving factors: rest <Shelia Davis NP - Last Filed: 03/09/22 22:05> Associated symptoms: malaise and shortness of breath <Shelia Davis NP - Last Filed: 03/09/22 22:05> Treatments prior to arrival: none <Shelia Davis NP - Last Filed: 03/09/22 22:05> Related Data Home medications: Home Medications Medication Instructions Recorded Confirmed amlodipine 5 mg tablet 1 tab PO QAM 03/22/21 05/01/21 olmesartan 40 mg tablet 1 tab PO BEDTIME 03/22/21 05/01/21 omeprazole 20 mg capsule,delayed 1 cap PO DAILY 03/22/21 05/01/21 release tamsulosin 0.4 mg capsule 1 cap PO QPM 03/22/21 05/01/21 Previous Rx's Medication Instructions Recorded ferrous sulfate 325 mg (65 mg 325 mg PO BID #60 tabs 04/03/21 iron) tablet <NANCIE De Paz - Last Filed: 03/09/22 17:03> Allergies/adverse reactions: Allergies Allergy/AdvReac Type Severity Reaction Status Date / Time No Known Allergies Allergy Verified 04/03/21 10:32 <NANCIE De Paz - Last Filed: 03/09/22 17:03> Review of Systems Review of Systems: Constitutional: Positive fatigue, positive pallor, No Fever, No Chills Cardiovascular: No Chest Pain, positive SOB Respiratory: No Cough, No Dyspnea Gastrointestinal: No Nausea, No Vomiting, No Diarrhea, No abdominal Pain Genitourinary: No Dysuria, No Hematuria Musculoskeletal: No joint pain, No Myalgias, No Joint Swelling Skin: No Skin lacerations, No rash Neuro: No Weakness, No Numbness, No Paresthesias, No Dizziness, No Headache <Shelia Davis NP - Last Filed: 03/09/22 22:05> Yes all other systems are reviewed and are negative <Shelia Davis NP - Last Filed: 03/09/22 22:05> [facility] Past Medical History Attestation statement: The following information was validated with the patient. <Shelia Davis NP - Last Filed: 03/09/22 22:05> Source: old records reviewed <Shelia Davis NP - Last Filed: 03/09/22 22:05> Medical History: Medical History Asthma BPH (benign prostatic hyperplasia) Hyperlipidemia Hypertension <NANCIE De Paz - Last Filed: 03/09/22 17:03> Surgical History: Surgical History H/O colonoscopy History of nasal surgery <NANCIE De Paz - Last Filed: 03/09/22 17:03> Family History Family History: Family History Mother CVA (cerebral vascular accident) <NANCIE De Paz - Last Filed: 03/09/22 17:03> Social History Social History: Social History Household Members: Spouse and Children Housing: House Are you a primary animal caregiver to a significant other at home: No Do you presently have visiting nurse or other home services: No Patient Tobacco Use Status: Never used Tobacco Smoked in Last 30 Days: No Use of substances other than those prescribed or required for medical reasons: No Advance Directives: No Advance Directives Information Provided: No service: No Current occupational status: retired and disabled <NANCIE De Paz - Last Filed: 03/09/22 17:03> Physical Exam ED Vital Signs: Vital Signs - 24 hr 03/09/22 17:02 03/09/22 19:21 03/09/22 20:10 Temperature 97.9 F 98.3 F 98.6 F Pulse Rate 84 81 84 Respiratory Rate 20 18 17 Blood Pressure 159/80 H 154/86 H 166/92 H Pulse Oximetry 99 97 Oxygen Delivery Method Room Air Room Air 03/09/22 20:26 03/09/22 20:58 03/09/22 20:59 Temperature 98.6 F 98.7 F 98.7 F Pulse Rate 83 77 82 Respiratory Rate 16 16 16 Blood Pressure 156/95 H 157/89 H 157/89 H Pulse Oximetry 98 Oxygen Delivery Method Room Air BMI result Body Mass Index 32.5 <NANCIE De Paz - Last Filed: 03/09/22 17:03> Vital Signs - 24 hr 03/09/22 17:02 03/09/22 19:21 03/09/22 20:10 Temperature 97.9 F 98.3 F 98.6 F Pulse Rate 84 81 84 Respiratory Rate 20 18 17 Blood Pressure 159/80 H 154/86 H 166/92 H Pulse Oximetry 99 97 Oxygen Delivery Method Room Air Room Air 03/09/22 20:26 03/09/22 20:58 03/09/22 20:59 Temperature 98.6 F 98.7 F 98.7 F Pulse Rate 83 77 82 Respiratory Rate 16 16 16 Blood Pressure 156/95 H 157/89 H 157/89 H Pulse Oximetry 98 Oxygen Delivery Method Room Air BMI result Body Mass Index 32.5 <Shelia Davis NP - Last Filed: 03/09/22 22:05> Appearance: Alert. Oriented X3. Mild distress. Pale. Eyes: Pupils equal, round and reactive to light. ENT: Pharynx normal. Neck: Normal inspection. Neck supple. CVS: Normal heart rate and rhythm. Pulses normal. Respiratory: No respiratory distress. Breath sounds normal. Abdomen: Soft and nontender. Skin: Skin warm and dry. Normal skin color. Normal skin turgor. Extremities: No lower extremity edema. Gait well-balanced well coordinated. Neuro: No motor deficit. No sensory deficit. Cranial nerves 2-12 intact. <Shelia Davis NP - Last Filed: 03/09/22 22:05> Course Course Course Narrative: RME performed by Juliana Hernandez PA-C. Patient is a 61 year old male presenting to the emergency department with weakness and fatigue. Patient states that he previously needed blood transfusions for this weakness due to his anemia. Patient states that these symptoms have been getting worse over the last month. Blood work ordered. <NANCIE De Paz Last Filed: 03/09/22 17:03> RME performed by Juliana Hernandez PA-C. Patient is a 61 year old male presenting to the emergency department with weakness and fatigue. Patient states that he previously needed blood transfusions for this weakness due to his anemia. Patient states that these symptoms have been getting worse over the last month. Blood work ordered. 61-year-old male presents with anemia, H&H is 6.0/21.6, patient is pale, and feels fatigued. Does not report any melena, hematochezia, nausea vomiting or fevers. Does have a history of anemia, was hospitalized in the past and given a blood transfusion. He is a patient of Dr. Clinton. 19:[address] Clinton via tiger text, plan of care is for patient to follow-up in the office, if patient does not show marked improvement with blood transfusion, or has hypoxia patient will be admitted. 21:18 ambulatory pulse ox 93-99% with exertion. Plan of care is discharged home and have patient follow-up with Dr. Clinton on Friday. Patient and patient's family verbalized understanding of and agrees to plan of care discharge home. Verbalized understanding of signs and symptoms indicated need for emergent intervention. <Shelia Davis NP - Last Filed: 03/09/22 22:05> Consultations Consultation #1: Mary Beth <Shelia Davis NP - Last Filed: 03/09/22 22:05> Medical Decision Making Differential Diagnosis Differential Diagnoses: The differential diagnosis associated with the presentation includes <Shelia Davis NP - Last Filed: 03/09/22 22:05> Iron deficiency anemia <Shelia Davis NP - Last Filed: 03/09/22 22:05> Admission/Observation Consideration of admission/observation: Escalation of care including admission/observation considered <Shelia Davis NP - Last Filed: 03/09/22 22:05> If patient does not have marked improvement after blood transfusion, will consider admission <Shelia Davis NP - Last Filed: 03/09/22 22:05> Consult Healthcare Provider Management of the patient was discussed with: [employer] Manager <Shelia Davis NP - Last Filed: 03/09/22 22:05> Mary Beth <Shelia Davis NP - Last Filed: 03/09/22 22:05> Lab Data MDM Lab Attestation statement: I reviewed the patient's lab results. <Shelia Davis NP - Last Filed: 03/09/22 22:05> Result Diagrams: 03/09/22 17:32 03/09/22 17:32 <NANCIE De Paz - Last Filed: 03/09/22 17:03> Labs: Lab Results 03/09/22 03/09/22 03/09/22 Range/Units 17:32 17:32 17:40 WBC 8.4 (4.8-10.8) X10*3/uL RBC 3.11 L D (4.60-5.80) X10*6/uL Hgb 6.0 L* D (14.0-18.0) g/dl Hct 21.6 L D (42.0-52.0) % MCV 69.5 L (80.0-98.0) fL MCH 19.3 L (27.0-33.0) pg MCHC 27.8 L (31.0-36.0) g/dl RDW 20.0 H (11.0-16.0) % Plt Count 293 D (160-400) X10*3/uL MPV 10.0 (9.4-12.4) fL Immature Gran % (Auto) 0.2 (0.0-0.4) % Neut % (Auto) 61.9 (45-73) % Lymph % (Auto) 20.9 (20-40) % Barrow % (Auto) 12.8 H (2-11) % Eos % (Auto) 3.7 (0-4) % Baso % (Auto) 0.5 (0-2) % Lymph # (Auto) 1.8 (1.2-4.9) X10*3/uL [place] # (Auto) 1.1 (0.1-1.2) X10*3/uL Eos # (Auto) 0.3 (0.0-0.4) X10*3/uL Baso # (Auto) 0.0 (0.0-0.2) X10*3/uL Abs Immat Gran (auto) 0.02 (0.00-0.03) X10*3/uL Absolute Neuts (auto) 5.2 (2.0-8.3) x10*3/uL Absolute Nucleated RBC 0.000 (0.0-0.012) X10*3/uL Nucleated RBC % (auto) 0.0 (0.0-0.2) /100WBC Sodium 137 (135-145) mmol/L Potassium 4.5 (3.3-5.1) mmol/L Chloride 104 (96-108) mmol/L Carbon Dioxide 24 (22-29) mmol/L Anion Gap 14 (12-20) BUN 20 H (9-16) mg/dL Creatinine 1.42 H (0.5-1.4) mg/dL Estim Creat Clear Calc 68.7 Estimated GFR 51 Random Glucose 99 (60-115) mg/dL Calcium 8.8 (8.4-10.2) mg/dL Magnesium 2.0 (1.6-2.6) mg/dL Iron 13 L (45-160) mcg/dL TIBC 359 (228-428) mcg/dL % Saturation 4 L (15-50) % Unsat Iron Binding 346 ug/dL Ferritin 5 L (20-250) ng/mL Total Bilirubin 0.3 (0.0-1.0) mg/dL AST 13 (5-37) U/L ALT 11 (0-40) U/L Alkaline Phosphatase 51 (39-117) U/L Total Protein 6.4 L (6.5-8.0) g/dL Albumin 4.1 (3.5-5.0) g/dL Stool Occult Blood (NEGATIVE) Influenza Type A (PCR) NEGATIVE (Negative) Influenza Type B (PCR) NEGATIVE (Negative) RSV RNA Qual (PCR) NEGATIVE (Negative) SARS-CoV-2 RNA (RT-PCR) NEGATIVE (Negative) Blood Type Antibody Screen Crossmatch 03/09/22 03/09/22 Range/Units 18:32 18:34 WBC (4.8-10.8) X10*3/uL RBC (4.60-5.80) X10*6/uL Hgb (14.0-18.0) g/dl Hct (42.0-52.0) % MCV (80.0-98.0) fL MCH (27.0-33.0) pg MCHC (31.0-36.0) g/dl RDW (11.0-16.0) % Plt Count (160-400) X10*3/uL MPV (9.4-12.4) fL Immature Gran % (Auto) (0.0-0.4) % Neut % (Auto) (45-73) % Lymph % (Auto) (20-40) % Barrow % (Auto) (2-11) % Eos % (Auto) (0-4) % Baso % (Auto) (0-2) % Lymph # (Auto) (1.2-4.9) X10*3/uL B[place] # (Auto) (0.1-1.2) X10*3/uL Eos # (Auto) (0.0-0.4) X10*3/uL Baso # (Auto) (0.0-0.2) X10*3/uL Abs Immat Gran (auto) (0.00-0.03) X10*3/uL Absolute Neuts (auto) (2.0-8.3) x10*3/uL Absolute Nucleated RBC (0.0-0.012) X10*3/uL Nucleated RBC % (auto) (0.0-0.2) /100WBC Sodium (135-145) mmol/L Potassium (3.3-5.1) mmol/L Chloride (96-108) mmol/L Carbon Dioxide (22-29) mmol/L Anion Gap (12-20) BUN (9-16) mg/dL Creatinine (0.5-1.4) mg/dL Estim Creat Clear Calc Estimated GFR Random Glucose (60-115) mg/dL Calcium (8.4-10.2) mg/dL Magnesium (1.6-2.6) mg/dL Iron (45-160) mcg/dL TIBC (228-428) mcg/dL % Saturation (15-50) % Unsat Iron Binding ug/dL Ferritin (20-250) ng/mL Total Bilirubin (0.0-1.0) mg/dL AST (5-37) U/L ALT (0-40) U/L Alkaline Phosphatase (39-117) U/L Total Protein (6.5-8.0) g/dL Albumin (3.5-5.0) g/dL Stool Occult Blood NEGATIVE (NEGATIVE) Influenza Type A (PCR) (Negative) Influenza Type B (PCR) (Negative) RSV RNA Qual (PCR) (Negative) SARS-CoV-2 RNA (RT-PCR) (Negative) Blood Type B Negative Antibody Screen NEGATIVE Crossmatch See Detail <NANCIE De Paz - Last Filed: 03/09/22 17:03> Lab Results 03/09/22 03/09/22 03/09/22 Range/Units 17:32 17:32 17:40 WBC 8.4 (4.8-10.8) X10*3/uL RBC 3.11 L D (4.60-5.80) X10*6/uL Hgb 6.0 L* D (14.0-18.0) g/dl Hct 21.6 L D (42.0-52.0) % MCV 69.5 L (80.0-98.0) fL MCH 19.3 L (27.0-33.0) pg MCHC 27.8 L (31.0-36.0) g/dl RDW 20.0 H (11.0-16.0) % Plt Count 293 D (160-400) X10*3/uL MPV 10.0 (9.4-12.4) fL Immature Gran % (Auto) 0.2 (0.0-0.4) % Neut % (Auto) 61.9 (45-73) % Lymph % (Auto) 20.9 (20-40) % Barrow % (Auto) 12.8 H (2-11) % Eos % (Auto) 3.7 (0-4) % Baso % (Auto) 0.5 (0-2) % Lymph # (Auto) 1.8 (1.2-4.9) X10*3/uL Barrow # (Auto) 1.1 (0.1-1.2) X10*3/uL Eos # (Auto) 0.3 (0.0-0.4) X10*3/uL Baso # (Auto) 0.0 (0.0-0.2) X10*3/uL Abs Immat Gran (auto) 0.02 (0.00-0.03) X10*3/uL Absolute Neuts (auto) 5.2 (2.0-8.3) x10*3/uL Absolute Nucleated RBC 0.000 (0.0-0.012) X10*3/uL Nucleated RBC % (auto) 0.0 (0.0-0.2) /100WBC Sodium 137 (135-145) mmol/L Potassium 4.5 (3.3-5.1) mmol/L Chloride 104 (96-108) mmol/L Carbon Dioxide 24 (22-29) mmol/L Anion Gap 14 (12-20) BUN 20 H (9-16) mg/dL Creatinine 1.42 H (0.5-1.4) mg/dL Estim Creat Clear Calc 68.7 Estimated GFR 51 Random Glucose 99 (60-115) mg/dL Calcium 8.8 (8.4-10.2) mg/dL Magnesium 2.0 (1.6-2.6) mg/dL Iron 13 L (45-160) mcg/dL TIBC 359 (228-428) mcg/dL % Saturation 4 L (15-50) % Unsat Iron Binding 346 ug/dL Ferritin 5 L (20-250) ng/mL Total Bilirubin 0.3 (0.0-1.0) mg/dL AST 13 (5-37) U/L ALT 11 (0-40) U/L Alkaline Phosphatase 51 (39-117) U/L Total Protein 6.4 L (6.5-8.0) g/dL Albumin 4.1 (3.5-5.0) g/dL Stool Occult Blood (NEGATIVE) Influenza Type A (PCR) NEGATIVE (Negative) Influenza Type B (PCR) NEGATIVE (Negative) RSV RNA Qual (PCR) NEGATIVE (Negative) SARS-CoV-2 RNA (RT-PCR) NEGATIVE (Negative) Blood Type Antibody Screen Crossmatch 03/09/22 03/09/22 Range/Units 18:32 18:34 WBC (4.8-10.8) X10*3/uL RBC (4.60-5.80) X10*6/uL Hgb (14.0-18.0) g/dl Hct (42.0-52.0) % MCV (80.0-98.0) fL MCH (27.0-33.0) pg MCHC (31.0-36.0) g/dl RDW (11.0-16.0) % Plt Count (160-400) X10*3/uL MPV (9.4-12.4) fL Immature Gran % (Auto) (0.0-0.4) % Neut % (Auto) (45-73) % Lymph % (Auto) (20-40) % Barrow % (Auto) (2-11) % Eos % (Auto) (0-4) % Baso % (Auto) (0-2) % Lymph # (Auto) (1.2-4.9) X10*3/uL B[place] # (Auto) (0.1-1.2) X10*3/uL Eos # (Auto) (0.0-0.4) X10*3/uL Baso # (Auto) (0.0-0.2) X10*3/uL Abs Immat Gran (auto) (0.00-0.03) X10*3/uL Absolute Neuts (auto) (2.0-8.3) x10*3/uL Absolute Nucleated RBC (0.0-0.012) X10*3/uL Nucleated RBC % (auto) (0.0-0.2) /100WBC Sodium (135-145) mmol/L Potassium (3.3-5.1) mmol/L Chloride (96-108) mmol/L Carbon Dioxide (22-29) mmol/L Anion Gap (12-20) BUN (9-16) mg/dL Creatinine (0.5-1.4) mg/dL Estim Creat Clear Calc Estimated GFR Random Glucose (60-115) mg/dL Calcium (8.4-10.2) mg/dL Magnesium (1.6-2.6) mg/dL Iron (45-160) mcg/dL TIBC (228-428) mcg/dL % Saturation (15-50) % Unsat Iron Binding ug/dL Ferritin (20-250) ng/mL Total Bilirubin (0.0-1.0) mg/dL AST (5-37) U/L ALT (0-40) U/L Alkaline Phosphatase (39-117) U/L Total Protein (6.5-8.0) g/dL Albumin (3.5-5.0) g/dL Stool Occult Blood NEGATIVE (NEGATIVE) Influenza Type A (PCR) (Negative) Influenza Type B (PCR) (Negative) RSV RNA Qual (PCR) (Negative) SARS-CoV-2 RNA (RT-PCR) (Negative) Blood Type B Negative Antibody Screen NEGATIVE Crossmatch See Detail <Shelia Davis NP - Last Filed: 03/09/22 22:05> Independent Interpretation I performed an independent interpretation of an: EKG and Plain X-Ray <Shelia Davis NP - Last Filed: 03/09/22 22:05> Interpretation: Normal sinus rhythm Normal ECG When compared with ECG of 22-MAR-2021 15:57, Nonspecific T wave abnormality has replaced inverted T waves in Inferior leads Vent. rate 83 BPM ME interval 200 ms QRS duration 84 ms QT/QTc 350/411 ms P-R-T axes 26 7 23 09-MAR-2022 17:38:20 <Shelia Davis NP - Last Filed: 03/09/22 22:05> Radiology Impression Discussion of test interpretation with radiology: I have reviewed the radiologist's reading. <Shelia Davis NP - Last Filed: 03/09/22 22:05> Radiologist Impression: EXAMINATION: XR CHEST CLINICAL INFORMATION: SOB and weakness COMPARISON: None TECHNIQUE: 2 views of the chest were obtained. FINDINGS: No significant abnormality is noted involving the heart, lungs, mediastinum, bony thorax or soft tissues. XR/XR chest 2V IMPRESSION: Unremarkable chest examination. <Shelia Davis NP - Last Filed: 03/09/22 22:05> Independent Historian Clinical information obtained from an independent historian. History obtained from or confirmed by: Other (Son) <Shelia Davis NP - Last Filed: 03/09/22 22:05> External Record Review External record reviewed: Inpatient record, Outpatient record and Prior outpatient labs <Shelia Davis NP - Last Filed: 03/09/22 22:05> Discharge Plan Discharge Clinical Impression: Iron deficiency anemia, Anemia <NANCIE De Paz - Last Filed: 03/09/22 17:03> Patient Disposition: Home, Self-Care <NANCIE De Paz - Last Filed: 03/09/22 17:03> Instructions: Iron Deficiency Anemia (ED), Anemia (ED) <NANCIE De Paz - Last Filed: 03/09/22 17:03> Additional Instructions: You were evaluated for anemia. We gave you 1 unit of blood. Please follow-up with Dr. Clinton on Friday. If your symptoms worsen please present to the emergency department immediately. Thank you for choosing this emergency department for evaluation. Please follow-up with primary care physician as needed. Return to the emergency department for any new, concerning, or worsening symptoms. <NANCIE De Paz - Last Filed: 03/09/22 17:03> Prescriptions: No Action ferrous sulfate 325 mg (65 mg iron) Tablet 325 mg PO BID Qty: 60 3RF amlodipine 5 mg tablet 1 tab PO QAM tamsulosin 0.4 mg capsule 1 cap PO QPM omeprazole 20 mg capsule,delayed release(DR/EC) 1 cap PO DAILY olmesartan 40 mg tablet 1 tab PO BEDTIME <NANCIE De Paz - Last Filed: 03/09/22 17:03> Referrals: Dana Clinton MD [Physician] - 2 days (Call for an appointment on Friday) <NANCIE De Paz - Last Filed: 03/09/22 17:03> Interventions: ED Discharge Assessment Last Done: 03/09/22 21:33 <NANCIE De Paz - Last Filed: 03/09/22 17:03> Discharge Date/Time: 03/09/22 21:34 <NANCIE De Paz - Last Filed: 03/09/22 17:03>
--- NOTE | 2022-03-09 17:03 | ECG_ITS ---
Test Reason : WEAKNESS Blood Pressure : / mmHG Vent. Rate : 083 BPM Atrial Rate : 083 BPM P-R Int : 200 ms QRS Dur : 084 ms QT Int : 350 ms P-R-T Axes : 026 007 023 degrees QTc Int : 411 ms Normal sinus rhythm Normal ECG When compared with ECG of 22-MAR-2021 15:57, No significant changes seen Referred By: Juliana Hernandez Electronically Signed By:ROBERT JOHNSON
--- NOTE | 2022-03-09 17:45 | PC.NURSE ---
PT A+O X4, VSS, PT C/O WEAKNESS AND FATIGUE THAT HAS BEEN GOING ON X1 MONTH AND HAS GOTTEN PROGRESSIVELY WORSE. HE REPORTS THAT HE HAS GOTTEN A BLOOD TRANSFUSION IN THE PAST FOR THE SAME THING.
[2022-03-09 17:49] LABS: MANUAL DIFF FLAG NO
[2022-03-09 17:52] LABS: Basophils Percent Auto 0.5 % (0-2); Eosinophils Absolute Auto 0.3 X10*3/uL (0.0-0.4); Eosinophils Percent Auto 3.7 % (0-4); Hematocrit 21.6 % (42.0-52.0); Imm Gran Abs Auto 0.02 X10*3/uL (0.00-0.03); Imm Gran Pct Auto 0.2 % (0.0-0.4); Lymphocytes Absolute Auto 1.8 X10*3/uL (1.2-4.9); Lymphocytes Percent Auto 20.9 % (20-40); Mean Corpuscular HGB Conc 27.8 g/dl (31.0-36.0); Mean Corpuscular Hemoglobin 19.3 pg (27.0-33.0); Mean Corpuscular Volume 69.5 fL (80.0-98.0); Monocytes Absolute Auto 1.1 X10*3/uL (0.1-1.2); Monocytes Percent Auto 12.8 % (2-11); Neutrophils Absolute Auto 5.2 x10*3/uL (2.0-8.3); Neutrophils Percent Auto 61.9 % (45-73); Platelet Count 293 X10*3/uL (160-400); Red Blood Count 3.11 X10*6/uL (4.60-5.80); White Blood Count 8.4 X10*3/uL (4.8-10.8)
[2022-03-09 18:07] LABS: Alanine Aminotransferase 11 U/L (0-40); Albumin Level 4.1 g/dL (3.5-5.0); Alkaline Phosphatase 51 U/L (39-117); Anion Gap 14 (12-20); Aspartate Amino Transferase 13 U/L (5-37); Bilirubin Total 0.3 mg/dL (0.0-1.0); Blood Urea Nitrogen 20 mg/dL (9-16); Calcium 8.8 mg/dL (8.4-10.2); Carbon Dioxide 24 mmol/L (22-29); Chloride 104 mmol/L (96-108); Creatinine Clr Calc Pharmacy 68.7; Estimated Glomerular Filt Rate 51; Glucose Random 99 mg/dL (60-115); Potassium 4.5 mmol/L (3.3-5.1); Sodium 137 mmol/L (135-145); Total Protein 6.4 g/dL (6.5-8.0)
[2022-03-09 18:31] LABS: Influenza A PCR NEGATIVE (Negative); Influenza B PCR NEGATIVE (Negative); Resp Syncy Virus RNA Qual PCR NEGATIVE (Negative); SARS COV2 PCR INHOUSE NEGATIVE (Negative)
[2022-03-09 18:46] LABS: OBS Int Ctl Valid YES; OBS1 NEGATIVE (NEGATIVE)
[2022-03-09 18:59] LABS: Iron 13 mcg/dL (45-160); Percent Iron Saturation 4 % (15-50); Total Iron Binding Capacity 359 mcg/dL (228-428); Unsaturated Iron Binding 346 ug/dL
[2022-03-09 19:14] LABS: Ferritin 5 ng/mL (20-250)
[2022-03-09 19:21] VITALS: BP 154/86; PULSE 81; RESP 18; TEMP 36.8; O2SAT 97
[2022-03-09 20:10] VITALS: BP 166/92; PULSE 84; RESP 17; TEMP 37
[2022-03-09 20:26] VITALS: BP 156/95; PULSE 83; RESP 16; TEMP 37
--- NOTE | 2022-03-09 20:34 | PC.NURSE ---
Nursing assessment: Pt is a/ox4, pt lungs sounds are clear throughout the lobes bilaterally. Pt Denies nausea, headache and any other symptoms. Pt's son is at bedside and he was utilize as an stone hand. Pt has pitting edema +1 on his right foot. Pt is hypertensive on NSR on the monitor. Provider is aware. Please referral to the worklist for further information.
[2022-03-09 20:58] VITALS: BP 157/89; PULSE 77; RESP 16; TEMP 37.1
[2022-03-09 20:59] VITALS: BP 157/89; PULSE 82; RESP 16; TEMP 37.1; O2SAT 98
== END 2022-03-09 21:34 | disposition home or self-care (01) ==
PROVIDERS: Nurse Practitioner Family; Physician Assistant Medical; Emergency Provider Internal Medicine; PCP Physician Assistant
DX: D50.9 Iron deficiency anemia, unspecified (principal); I10 Essential (primary) hypertension; E78.5 Hyperlipidemia, unspecified; Z20.822 Contact with and (suspected) exposure to COVID-19; Z20.828 Contact with and (suspected) exposure to other viral communicable diseases; Z79.899 Other long term (current) drug therapy
CPT/HCPCS: 0241U; 36415; 36430; 71046; 80053; 82272; 82728; 83540; 83735; 85025; 86850; 86900; 86901; 86923; 93005; 99285; P9016

== ENCOUNTER 2022-04-02 12:50 | Outpatient (REF) | payer OTHER, SELFPAY | END 2022-04-02 12:51 | disposition home or self-care (01) | LOC: HO.MDS 12:50 | PROVIDERS: Visit Provider Internal Medicine | DX: D50.9 Iron deficiency anemia, unspecified (principal) | CPT/HCPCS: 96365; J1756 ==

== ENCOUNTER 2022-04-09 10:41 | Outpatient (REF) | payer OTHER, SELFPAY | END 2022-04-09 10:42 | disposition home or self-care (01) | LOC: HO.MDS 10:41 | PROVIDERS: Visit Provider Internal Medicine | DX: D50.9 Iron deficiency anemia, unspecified (principal) | CPT/HCPCS: 96365; J1756 ==

== ENCOUNTER 2022-04-15 11:02 | Outpatient (REF) | payer OTHER, SELFPAY | END 2022-04-15 11:03 | disposition home or self-care (01) | LOC: HO.MDS 11:02 | PROVIDERS: Visit Provider Internal Medicine | DX: D50.9 Iron deficiency anemia, unspecified (principal) | CPT/HCPCS: 96365; J1756 ==

== ENCOUNTER 2022-04-23 10:51 | Outpatient (REF) | payer OTHER, SELFPAY | END 2022-04-23 10:52 | disposition home or self-care (01) | LOC: HO.MDS 10:51 | PROVIDERS: Visit Provider Internal Medicine | DX: D50.9 Iron deficiency anemia, unspecified (principal) | CPT/HCPCS: 96365; J1756 ==

== ENCOUNTER 2022-04-30 10:47 | Outpatient (REF) | payer OTHER, SELFPAY | END 2022-04-30 10:48 | disposition home or self-care (01) | LOC: HO.MDS 10:47 | PROVIDERS: Visit Provider Internal Medicine | DX: D50.9 Iron deficiency anemia, unspecified (principal) | CPT/HCPCS: 96365; J1756 ==

== ENCOUNTER 2022-05-14 09:01 | Outpatient (REF) | payer MEDICAID, SELFPAY ==
[2022-05-14 11:17] LABS: Blood Urea Nitrogen 20 mg/dL (9-16); Calcium 9.3 mg/dL (8.4-10.2); Carbon Dioxide 24 mmol/L (22-29); Chloride 106 mmol/L (96-108); Estimated Glomerular Filt Rate 51; Glucose Random 115 mg/dL (60-115); Potassium 4.6 mmol/L (3.3-5.1); Sodium 138 mmol/L (135-145)
[2022-05-14 11:24] LABS: Anion Gap 14 (12-20)
[2022-05-14 11:43] LABS: Vitamin D 25-OH Total 47.8 ng/mL (>30)
[2022-05-14 11:59] LABS: Ferritin 56 ng/mL (20-250); Folate 12.9 ng/mL (> or = 4.0); Vitamin B12 516 pg/mL (200-900)
[2022-05-14 13:20] LABS: Hematocrit 36.8 % (42.0-52.0); Hemoglobin 11.4 g/dl (14.0-18.0); Mean Corpuscular Volume 80.7 fL (80.0-98.0); Mean Platelet Volume 10.8 fL (9.4-12.4); Platelet Count 193 X10*3/uL (160-400); Red Blood Count 4.56 X10*6/uL (4.60-5.80); Red Cell Distribution Width 22.7 % (11.0-16.0); White Blood Count 4.9 X10*3/uL (4.8-10.8)
[2022-05-15 07:13] LABS: ~HepC Num1 0.18 S/CO (0.00-0.79); ~Hepatitis C Antibody Nonreactive (Nonreactive)
[2022-05-15 07:22] LABS: Hepatitis A Antibody IgG REACTIVE (Nonreactive); ~Hepatitis A Antibody IgG 11.72 S/CO (0.00-0.99)
[2022-05-15 07:31] LABS: HBS Num1 0.17 mIU/mL (0-7.99); HBc Num1 0.09 S/CO (0.00-0.79); HBsAGNum1 0.31 S/CO (0.00-0.99); Hepatitis B Core Antibody Nonreactive (Nonreactive); Hepatitis B Surface Antigen Negative (Negative); ~Hepatitis B Surface Antibody NONREACTIVE (Nonreactive)
[2022-05-16 11:59] LABS: H Pylori Breath Test Negative (Negative)
[2022-05-20 08:28] LABS: Transglutaminase IgA <1.0 U/mL
== END 2022-05-14 09:02 | disposition home or self-care (01) ==
LOC: HO.LAB 09:01
PROVIDERS: Internal Medicine; PCP Physician Assistant; Visit Provider Internal Medicine
DX: D50.9 Iron deficiency anemia, unspecified (principal); Z11.59 Encounter for screening for other viral diseases; Z11.0 Encounter for screening for intestinal infectious diseases
CPT/HCPCS: 36415; 80048; 82306; 82607; 82728; 82746; 83013; 85027; 86364; 86704; 86706; 86708; 86803; 87340; 99202

== ENCOUNTER 2022-12-19 10:15 | Outpatient (REF) | payer MEDICAID, SELFPAY | END 2022-12-19 10:16 | disposition home or self-care (01) | LOC: HO.MDS 10:15 | PROVIDERS: Visit Provider Internal Medicine | DX: D50.8 Other iron deficiency anemias (principal) | CPT/HCPCS: 96365; J1756 ==

== ENCOUNTER 2022-12-23 13:51 | Outpatient (REF) | payer MEDICAID, SELFPAY | END 2022-12-23 13:52 | disposition home or self-care (01) | LOC: HO.MDS 13:51 | PROVIDERS: Visit Provider Internal Medicine | DX: D50.8 Other iron deficiency anemias (principal) | CPT/HCPCS: 96365; J1756 ==

== ENCOUNTER 2022-12-30 10:23 | Outpatient (REF) | payer MEDICAID, SELFPAY | END 2022-12-30 10:24 | disposition home or self-care (01) | LOC: HO.MDS 10:23 | PROVIDERS: Visit Provider Internal Medicine | DX: D50.8 Other iron deficiency anemias (principal) | CPT/HCPCS: 96365; J1756 ==

== ENCOUNTER 2023-01-01 10:19 | Outpatient (REF) | payer MEDICAID, SELFPAY | END 2023-01-01 10:20 | disposition home or self-care (01) | LOC: HO.MDS 10:19 | PROVIDERS: Visit Provider Internal Medicine | DX: D50.8 Other iron deficiency anemias (principal) | CPT/HCPCS: 96365; J1756 ==

== ENCOUNTER 2023-01-06 10:20 | Outpatient (REF) | payer MEDICAID, SELFPAY | END 2023-01-06 10:21 | disposition home or self-care (01) | LOC: HO.MDS 10:20 | PROVIDERS: Visit Provider Internal Medicine | DX: D50.8 Other iron deficiency anemias (principal) | CPT/HCPCS: 96365; J1756 ==

== ENCOUNTER 2023-01-08 10:23 | Outpatient (REF) | payer MEDICAID, SELFPAY | END 2023-01-08 10:24 | disposition home or self-care (01) | LOC: HO.MDS 10:23 | PROVIDERS: Visit Provider Internal Medicine | DX: D50.8 Other iron deficiency anemias (principal) | CPT/HCPCS: 96365; J1756 ==

== ENCOUNTER → 2024-02-17 20:20 | Outpatient (BNV) | payer OTHER, SELFPAY | PROVIDERS: Emergency Provider Emergency Medicine; PCP Registered Nurse; Visit Provider Internal Medicine | DX: I44.0 Atrioventricular block, first degree (principal) | CPT/HCPCS: 93010 ==